=== PATIENT | female | born 1970 | race Two or more races ===

== ENCOUNTER 2021-12-02 22:56 | Inpatient (IN) | payer MEDICAID, OTHER ==
[~2021-12-02] VITALS: Ht 154.9 cm; Wt 42.8 kg
[2021-12-02] MEDS ORDERED: MORPHINE SULFATE 4 MG/ML CPJ (NOT FOR IM USE) IV STA (23:37)
[2021-12-02] MEDS ORDERED: ONDANSETRON HCL 4MG/2ML INJ IV STA (23:37)
[2021-12-02] MEDS ORDERED: VANCOMYCIN 1G PREMIX 200 ML IV ONE (23:45)
[2021-12-02] MEDS ORDERED: SODIUM CHLORIDE 0.9% 1000ML BAG (SEPSIS BOLUS) IV ONE (23:45)
[2021-12-02] MEDS ORDERED: PIPERACILLIN/TAZ 3.375G PREMIX 50 ML IV ONE (23:45)
[2021-12-02 23:58] LABS: BASOPHILS % 0.4 % (0.0-2.0); EOSINOPHILS % 0.2 % (0.0-5.0); HEMATOCRIT. 33.6 % (36.0-48.0); HEMOGLOBIN. 11.4 g/dL (12.0-16.0); LYMPHOCYTES % 14.8 % (20.0-50.0); MEAN CORPUSCULAR VOLUME 85.7 fL (81.0-99.0); MEAN PLATELET VOLUME 7.7 fl (7.4-10.4); MONOCYTES % 8.2 % (2.0-8.0); NEUTROPHILS % 76.4 % (40.0-76.0); PLATELET 170 x1000/uL (130-400); RED BLOOD CELL COUNT 3.92 mill/uL (4.2-5.4)
[2021-12-03] VITALS (40 sets, daily range): BP systolic 51–157; BP diastolic 17–98
[2021-12-03 00:04] LABS: CHLORIDE 100 mEq/L (98-107)
[2021-12-03 00:46] LABS: CLARITY URINE CLEAR (CLEAR); COLOR URINE YELLOW (YELLOW); KETONES URINE NEGATIVE (NEGATIVE); LEUKOCYTE ESTERASE URINE 2+ (NEGATIVE); NITRITE URINE NEGATIVE (NEGATIVE); OCCULT BLOOD URINE TRACE (NEGATIVE); PH URINE 5.5 (4.5-8.0); PROTEIN URINE NEGATIVE (NEGATIVE); SPECIFIC GRAVITY URINE 1.012 (1.005-1.030); UROBILINOGEN URINE 0.2 E.U./dL (0.2-1.0)
[2021-12-03] MEDS ORDERED: MORPHINE SULFATE 4 MG/ML CPJ (NOT FOR IM USE) IV ONE (05:45)
[2021-12-03] MEDS ORDERED: ONDANSETRON HCL 4MG/2ML INJ IV PRN (08:30)
[2021-12-03] MEDS ORDERED: CEFTRIAXONE 1 G PREMIX 50 ML IV SCH (09:00)
[2021-12-03] MEDS: ACETAMINOPHEN 325MG TABLET PO PRN ×2 (09:33→15:35)
[2021-12-03] MEDS ORDERED: SODIUM CHLORIDE 0.9% 500 ML IV ONE ×3 (09:53→12:30)
[2021-12-03] MEDS ORDERED: SODIUM CHLORIDE 0.9% 500 ML IV SCH (10:00)
[2021-12-03] MEDS: CEFTRIAXONE 1,000 MG in DEXTROSE 5% WATER 50 ML IV SCH (12:04)
[2021-12-03] MEDS: MIDODRINE HCL 5MG TABLET PO SCH ×2 (12:09→16:57)
[2021-12-03] MEDS ORDERED: NOREPINEPHRINE 32 MG in DEXT 5% WATER 218 ML IV PRN (15:00)
[2021-12-04] VITALS (59 sets, daily range): BP systolic 69–134; BP diastolic 38–78
[2021-12-04] MEDS: ACETAMINOPHEN 325MG TABLET PO PRN ×2 (04:30→11:24)
[2021-12-04 06:21] LABS: BASOPHILS % 0.6 % (0.0-2.0); HEMATOCRIT. 29.2 % (36.0-48.0); HEMOGLOBIN. 9.8 g/dL (12.0-16.0); LYMPHOCYTES % 29.1 % (20.0-50.0); MEAN CORPUSCULAR HEMOGLOBIN 29.2 pg (28.0-32.0); MEAN CORPUSCULAR VOLUME 87.1 fL (81.0-99.0); MEAN PLATELET VOLUME 8.1 fl (7.4-10.4); MONOCYTES % 9.4 % (2.0-8.0); NEUTROPHILS % 58.9 % (40.0-76.0); PLATELET 149 x1000/uL (130-400); RED BLOOD CELL COUNT 3.35 mill/uL (4.2-5.4); RED CELL DISTRIBUTION WIDTH 13.2 % (11.6-14.6)
[2021-12-04] MEDS: MIDODRINE HCL 5MG TABLET PO SCH ×3 (08:14→17:37)
[2021-12-04] MEDS: CEFTRIAXONE 1,000 MG in DEXTROSE 5% WATER 50 ML IV SCH (09:22)
[2021-12-05] VITALS (24 sets, daily range): BP systolic 83–138; BP diastolic 41–77
[2021-12-05] MEDS: ACETAMINOPHEN 325MG TABLET PO PRN (08:31)
[2021-12-05] MEDS: CEFTRIAXONE 1,000 MG in DEXTROSE 5% WATER 50 ML IV SCH (08:34)
[2021-12-05] MEDS: MIDODRINE HCL 5MG TABLET PO SCH ×2 (08:35→12:40)
[2021-12-05] MEDS ORDERED: LEVO500T90 MT (11:36)
== END 2021-12-05 14:00 | disposition home or self-care (01) | DRG 720 ==
LOC: ER 22:56 → MICUSO 12-03 05:38 → 7WST 12-03 08:56 → CVICU 12-03 14:23
PROVIDERS: ADMIT Internal Medicine; ATTEND Internal Medicine
DX: A41.9 Sepsis, unspecified organism (principal); R65.21 Severe sepsis with septic shock; N39.0 Urinary tract infection, site not specified; E87.1 Hypo-osmolality and hyponatremia; Z20.822 Contact with and (suspected) exposure to COVID-19
CPT/HCPCS: 36415; 71045; 74176; 80048; 80053; 81003; 82962; 83605; 84145; 85025; 87426; 93005; 99291; J0696; J2270; J2405; J2543; J3370; J7030; J7060